=== PATIENT | female | born 2000 | race African-American/Black ===

== ENCOUNTER 2021-06-28 13:35 | Inpatient (IN) | payer OTHER ==
[2021-06-28 15:27] VITALS: BMI 43.2
[2021-06-28] MEDS ORDERED: DINOPROSTONE 10 MG VAGINAL SUPPOSITORY VG ONE ×2 (15:41→22:00)
[2021-06-28] MEDS ORDERED: BUTORPHANOL TARTRATE 2 MG/ML VIAL IVPUSH ONE (15:45)
[2021-06-28] MEDS ORDERED: PROMETHAZINE HCL 25 MG/1 ML VIAL IVPUSH ONE (16:00)
[2021-06-28 16:52] LABS: BASO % 0.3 % (0-2.0); EOS % 0.3 % (0-4.5); HEMATOCRIT 36.6 % (32.4-45.2); HEMOGLOBIN 12.4 GM/dL (10.7-15.3); LYMPH % 16.6 % (8-40); MCH 29.4 pg (25.7-33.7); MEAN CELL VOLUME 86.6 fl (80-96); MONO % 4.6 % (3.8-10.2); NEUT % 78.2 % (42.8-82.8); PLATELET COUNT 192 10^3/uL (134-434); RBC 4.22 M/mm3 (3.60-5.2); RDW 15.1 % (11.6-15.6); WHITE BLOOD COUNT 10.6 K/mm3 (4.0-10.0)
[2021-06-28 17:00] LABS: INR 1.06 (0.83-1.09); PROTHROMBIN TIME (PATIENT) 11.9 SEC (9.7-13.0)
[2021-06-28 17:13] LABS: CALCIUM 8.6 mg/dL (8.5-10.1)
[2021-06-28 17:14] LABS: BLOOD UREA NITROGEN 4.2 mg/dL (7-18)
[2021-06-28 17:17] LABS: CREATININE 0.5 mg/dL (0.55-1.3)
[2021-06-29] MEDS: ELECTROLYTE-148 SOLN 1,000 ML IV SCH ×3 (00:10→19:42)
[2021-06-29] MEDS ORDERED: AMPICILLIN - 2 GM in SODIUM CHLORIDE 100 ML IVPB ONE (07:30)
[2021-06-29] MEDS ORDERED: AMPICILLIN SODIUM 2 GM VIAL ONE (07:31)
[2021-06-29] MEDS ORDERED: AMPICILLIN SODIUM 1 GM VIAL ONE ×2 (12:04→15:41)
[2021-06-29] MEDS: AMPICILLIN - 1 GM in SODIUM CHLORIDE 100 ML IVPB SCH ×3 (12:10→19:42)
[2021-06-29] MEDS ORDERED: ELECTROLYTE-148 SOLN 500 ML IV ONE ×2 (18:00→19:00)
[2021-06-29] MEDS ORDERED: CITRIC ACID/SODIUM CITRATE 30 ML UNIT-DOSE CUP PO ONE (18:00)
[2021-06-29] MEDS ORDERED: morphine SULFATE/PF 1 MG/2 ML (2cc Syringe - QUVA) ONE (19:06)
[2021-06-29] MEDS ORDERED: PROPOFOL 20 ML ONE (19:12)
[2021-06-29] MEDS ORDERED: SUCCINYLCHOLINE CHLORIDE 200 MG/10 ML SYRINGE ONE (19:12)
[2021-06-29] MEDS ORDERED: IBUPROFEN 600 MG TABLET (FP) PO PRN (19:59)
[2021-06-29] MEDS ORDERED: ACETAMINOPHEN 325 MG TABLET (FP) PO PRN (19:59)
[2021-06-29] MEDS: OXYTOCIN 20 UNITS in 0.9% NS 20 UNIT/1,000 ML INFUS.BAG IV SCH (21:00)
[2021-06-29 21:20] LABS: CORD BASE EXCESS -3.3 mmol/L (0-2); CORD HCO3 22.6 mmHg (20-29); CORD PCO2 43.6 mmHg (30-78); CORD pH 7.332 (7.14-7.44)
[2021-06-29] MEDS ORDERED: OXYTOCIN 20 UNITS in 0.9% NS 20 UNIT/1,000 ML INFUS.BAG IV ONE (22:18)
[2021-06-29] MEDS: METHYLERGONOVINE MALEATE 0.2 MG/1 ML AMP IM PRN (22:24)
[2021-06-30] MEDS ORDERED: ONDANSETRON 4 MG/2 ML VIAL IVPUSH PRN (01:41)
[2021-06-30] MEDS ORDERED: IBUPROFEN 800 MG/8 ML IJ IVPB PRN (01:42)
[2021-06-30] MEDS: METHYLERGONOVINE MALEATE 0.2 MG/1 ML AMP IM PRN (03:40)
[2021-06-30] MEDS ORDERED: oxyCODONE HCL 5 MG TABLET PO PRN ×2 (07:59)
[2021-06-30 08:42] LABS: EOS % 0.1 % (0-4.5); HEMATOCRIT 33.8 % (32.4-45.2); HEMOGLOBIN 11.3 GM/dL (10.7-15.3); LYMPH % 6.1 % (8-40); MCHC 33.4 g/dl (32.0-36.0); MEAN CELL VOLUME 86.9 fl (80-96); MEAN PLT VOLUME 8.2 fl (7.5-11.1); MONO % 3.8 % (3.8-10.2); PLATELET COUNT 162 10^3/uL (134-434); RBC 3.89 M/mm3 (3.60-5.2); WHITE BLOOD COUNT 15.8 K/mm3 (4.0-10.0)
[2021-06-30] MEDS: OXYTOCIN 20 UNITS in 0.9% NS 20 UNIT/1,000 ML INFUS.BAG IV SCH (09:00)
[2021-06-30] MEDS ORDERED: DEXTROSE 5%-WATER - 50 ML IVPB ONE ×2 (10:34→18:10)
[2021-06-30] MEDS ORDERED: ceFAZolin SODIUM 1 GM VIAL ONE ×2 (10:35→18:11)
[2021-06-30] MEDS: CEFAZOLIN 1 GM in DEXTROSE 5%-WATER - 50 ML IVPB SCH ×2 (10:38→18:14)
[2021-06-30] MEDS ORDERED: LEVALBUTEROL HCL 0.31 MG/3 ML VIAL.NEB IH PRN (12:46)
[2021-06-30] MEDS ORDERED: LACTATED RINGERS SOLUTION 1,000 ML/1,000 ML INFUS.BAG IV SCH ×2 (13:00→21:00)
[2021-06-30] MEDS: ACETAMINOPHEN 325 MG TABLET (FP) PO PRN (17:02)
[2021-06-30] MEDS ORDERED: BISACODYL 10 MG SUPP.RECT RC PRN (19:59)
[2021-06-30 20:48] LABS: HEMATOCRIT 34.7 % (32.4-45.2); HEMOGLOBIN 11.8 GM/dL (10.7-15.3); MCH 29.7 pg (25.7-33.7); MEAN CELL VOLUME 87.5 fl (80-96); MEAN PLT VOLUME 8.1 fl (7.5-11.1); PLATELET COUNT 177 10^3/uL (134-434); RBC 3.96 M/mm3 (3.60-5.2); RDW 15.5 % (11.6-15.6); WHITE BLOOD COUNT 20.5 K/mm3 (4.0-10.0)
[2021-06-30] MEDS: guaiFENesin/D-METHORPHAN TAB.ER.12H PO SCH (23:49)
[2021-07-01] MEDS: AMPICILLIN NA/SULBACTAM NA 1.5 GM in SODIUM CHLORIDE 100 ML IVPB SCH ×4 (02:47→21:47)
[2021-07-01] MEDS ORDERED: AMPICILLIN NA/SULBACTAM NA 1.5 GM in SODIUM CHLORIDE 100 ML IVPB SCH (03:00)
[2021-07-01] MEDS: guaiFENesin/D-METHORPHAN TAB.ER.12H PO SCH ×2 (09:35→21:47)
[2021-07-01 11:48] LABS: CALCIUM 8.5 mg/dL (8.5-10.1)
[2021-07-01 11:49] LABS: ALBUMIN 2.6 g/dl (3.4-5.0); BLOOD UREA NITROGEN 4.5 mg/dL (7-18)
[2021-07-01 11:51] LABS: CREATININE 0.4 mg/dL (0.55-1.3)
[2021-07-01] MEDS: ENOXAPARIN NA (PORCINE) 40 MG/0.4 ML DISP.SYRIN SQ SCH (11:51)
[2021-07-01 11:54] LABS: BILIRUBIN,TOTAL 0.6 mg/dL (0.2-1)
[2021-07-01 13:59] LABS: URINE APPEARANCE CLEAR; URINE BILIRUBIN NEGATIVE (NEGATIVE); URINE COLOR RED; URINE GLUCOSE (UA) NEGATIVE (NEGATIVE); URINE KETONE NEGATIVE (NEGATIVE); URINE LEUK ESTERASE 1+ (NEGATIVE); URINE NITRITE NEGATIVE (NEGATIVE); URINE PROTEIN 1+ (NEGATIVE)
[2021-07-01 14:09] LABS: EPI CELLS 63.2 /uL (0-25.1); HYALINE CASTS 1.31 /uL (0-3.1); URINE RBC 1268.6 /uL (0-23.9); URINE WBC 12.5 /uL (0-25.8)
[2021-07-01] MEDS: ACETAMINOPHEN 325 MG TABLET (FP) PO PRN (19:45)
[2021-07-01] MEDS: SIMETHICONE 80 MG TAB.CHEW (FP) PO PRN (20:03)
[2021-07-02] MEDS: AMPICILLIN NA/SULBACTAM NA 1.5 GM in SODIUM CHLORIDE 100 ML IVPB SCH ×2 (03:09→08:42)
[2021-07-02] MEDS: SIMETHICONE 80 MG TAB.CHEW (FP) PO PRN (08:43)
[2021-07-02] MEDS: ACETAMINOPHEN 325 MG TABLET (FP) PO PRN (08:43)
[2021-07-02 09:31] LABS: BASO % 0.1 % (0-2.0); EOS % 0.9 % (0-4.5); HEMOGLOBIN 10.6 GM/dL (10.7-15.3); LYMPH % 12.9 % (8-40); MCHC 33.2 g/dl (32.0-36.0); MEAN CELL VOLUME 87.6 fl (80-96); MEAN PLT VOLUME 8.1 fl (7.5-11.1); MONO % 5.9 % (3.8-10.2); NEUT % 80.2 % (42.8-82.8); PLATELET COUNT 198 10^3/uL (134-434); RBC 3.65 M/mm3 (3.60-5.2); RDW 15.9 % (11.6-15.6); WHITE BLOOD COUNT 10.9 K/mm3 (4.0-10.0)
[2021-07-02 09:51] LABS: CALCIUM 8.1 mg/dL (8.5-10.1)
[2021-07-02 09:52] LABS: ALBUMIN 2.5 g/dl (3.4-5.0); BLOOD UREA NITROGEN 3.5 mg/dL (7-18); MAGNESIUM 2.2 mg/dL (1.8-2.4)
[2021-07-02 09:55] LABS: CREATININE 0.4 mg/dL (0.55-1.3); PHOSPHOROUS 4.2 mg/dL (2.5-4.9)
[2021-07-02 09:56] LABS: BILIRUBIN,TOTAL 0.4 mg/dL (0.2-1); TOT PROT 5.9 g/dl (6.4-8.2)
[2021-07-02] MEDS: ENOXAPARIN NA (PORCINE) 40 MG/0.4 ML DISP.SYRIN SQ SCH (10:15)
[2021-07-02] MEDS: guaiFENesin/D-METHORPHAN TAB.ER.12H PO SCH (10:16)
[2021-07-02 10:23] VITALS: BP 123/67; PULSE 97; TEMP 97.8
== END 2021-07-02 13:10 | disposition home or self-care (01) | DRG 540 ==
LOC: EDBD 13:35 → JLDR 13:35 → J3W 06-29 23:07
PROVIDERS: ADMIT Internal Medicine; ATTEND Internal Medicine
PROC: 10D00Z1 Extraction of Products of Conception, Low, Open Approach (ICD-10-PCS; principal; 2021-06-29)
PROC: 3E0P7VZ Introduction of Hormone into Female Reproductive, Via Natural or Artificial Opening (ICD-10-PCS; 2021-06-29)
DX: O61.0 Failed medical induction of labor (principal); O48.0 Post-term pregnancy; O42.02 Full-term premature rupture of membranes, onset of labor within 24 hours of rupture; O99.214 Obesity complicating childbirth; E66.01 Morbid (severe) obesity due to excess calories; O98.53 Other viral diseases complicating the puerperium; U07.1 COVID-19; O86.12 Endometritis following delivery; D72.829 Elevated white blood cell count, unspecified; O75.4 Other complications of obstetric surgery and procedures; R00.0 Tachycardia, unspecified; J45.20 Mild intermittent asthma, uncomplicated; Z3A.40 40 weeks gestation of pregnancy; Z37.0 Single live birth
CPT/HCPCS: 36415; 36600; 71045-TC-FY; 71046-TC-FY; 80048; 80053; 81003; 82728; 82803; 83605; 83615; 83735; 84100; 84443; 85025; 85027; 85379; 85610; 85730; 86140; 86780; 86850; 86900; 86901; 87040; 87086; 87804; 87807; 88307-TC; 93005; 93010; 93970-TC; C9803; U0003; U0005